=== PATIENT | female | born 1965 | race Caucasian/White ===

== ENCOUNTER 2016-10-04 12:49 | Emergency (ER) | payer OTHER ==
[~2016-10-04] VITALS: Ht 175.3 cm; Wt 106.6 kg
--- NOTE | 2016-10-04 13:59 | ED MVC/FALL/TRAUMA COMPLAINT ---
History of Present Illness General Chief Complaint: Fall Stated Complaint: L HAND INJURY/ R SIDED RIB PAIN S/P FALL Source: patient, family Exam Limitations: no limitations Vital Signs & Intake/Output Vital Signs & Intake/Output Vital Signs Date Time Temp Pulse Resp B/P Pulse O2 O2 Flow FiO2 Ox Delivery Rate 10/04 1515 78 128/88 10/04 1407 Room Air 10/04 1311 98.7 76 18 151/95 96 Room Air Allergies Coded Allergies: MDX - Lactose (Lactose) (UNKNOWN 02/17/12) Reconcile Medications Escitalopram Oxalate (Lexapro) 20 MG TABLET 1 TAB PO DAILY MENTAL HEALTH ( Reported) Losartan Potassium 50 MG TABLET 1 TAB PO DAILY KATHY (Reported) Triage Note: PT TO ED FOR FALL IN THE SHOWER P/T ARRIVAL, C/O L THUMB PAIN AND R RIB PAIN. DID NOT HIT HEAD, NO LOC. SMALL AREA OF SWELLING TO L BASE OF THUMB. Triage Nurses Notes Reviewed? yes HPI: Patient is a 51-year-old female presents complaining of left hand pain and right rib pain status post fall. Patient slipped and fell in the shower a couple of hours ago. Patient struck her right ribs against the edge of the bathtub. Pain is currently moderate, worsens with deep breath and palpation. She was administered ibuprofen in triage with mild to moderate improvement. Ice pack to the left hand also provide some relief. Patient is left-hand dominant. Patient denies head injury, loss of consciousness, neck pain, back pain, dyspnea. (CHANI VIVAS) Past History Travel History Traveled to [place] past 21 day No Medical History Any Pertinent Medical History? 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 No (CHANI VIVAS) Review of Systems Review of Systems Constitutional: Reports: no symptoms. Eyes: Denies: blurred vision. Ears, Nose, Throat, Mouth: Reports: no symptoms. Respiratory: Denies: cough, short of breath. Cardiovascular: Denies: chest pain. Gastrointestinal/Abdominal: Denies: abdominal pain. Genitourinary: Reports: no symptoms. Musculoskeletal: Reports: see HPI. Skin: Reports: no symptoms. Neurological/Psychological: Denies: headache, numbness, unable to move lower ext, unable to move upper ext. (CHANI VIVAS) Physical Exam Physical Exam General Appearance: well developed/nourished, alert, awake Head: atraumatic, normal appearance Eyes: Bilateral: normal appearance. Ears, Nose, Throat, Mouth: hearing grossly normal, moist mucous membrane Neck: normal inspection, supple, full range of motion, no midline tenderness, no paraspinal tenderness Respiratory: normal breath sounds, no respiratory distress, lungs clear, right lateral inferior rib tenderness Cardiovascular: regular rate/rhythm Peripheral Pulses: 2+ radial (L) Back: normal inspection, normal range of motion, no vertebral tenderness Extremities: tenderness left hand first metacarpal. Full range of motion of all fingers. No tenderness in the left anatomical snuffbox. No tenderness of the right upper extremity, right lower extremity, left lower extremity Neurologic/Psych: no motor/sensory deficits, awake, alert, oriented x 3, normal gait, normal mood/affect Skin: intact, normal color, warm/dry Core Measures ACS in differential dx? No Severe Sepsis Present: No Septic Shock Present: No (CHANI VIVAS) Progress Differential Diagnosis: aoritic dissection, abd injury, C/T/L spine injury, ext injury, ICH, pelvis injury, pnemothorax, spinal cord injury Plan of Care: Orders Procedure Date/time Status XRY-WRIST COMPLETE-RIGHT 10/04 1313 Active XRY-RIBS UNILATERAL-RIGHT 10/04 1313 Active Results of imaging discussed with patient and her . No acute neurologic abnormalities, patient resting comfortably. Appears stable for discharge with conservative treatment. (CHANI VIVAS) Diagnostic Imaging: Viewed by Me: Radiology Read. Discussed w/RAD: Radiology Read. Radiology Impression: PATIENT: CHLOE VILLEDA PRESENT AGE: 51 PATIENT ACCOUNT NO: [id number] : 66 LOCATION: [facility] ORDERING PHYSICIAN: KEARA REID DO SERVICE DATE: 10/04/16-1313 EXAM TYPE: RAD - XRY-RIBS UNILATERAL-RIGHT EXAMINATION: XR RIBS, RIGHT CLINICAL INFORMATION: Fall in shower COMPARISON: None TECHNIQUE: 4 plain film oblique views of the right ribs FINDINGS: Lungs are clear. No consolidation, pneumothorax, or pleural effusion. The cardiomediastinal silhouette and pulmonary vasculature are normal. Osseous structures are unremarkable. Ribs are intact. No displaced rib fractures are identified. IMPRESSION: No displaced rib fracture seen. Unremarkable right chest. DICTATED BY: CHANI WREN MD DATE/TIME DICTATED:10/04/161443 DIRECTOR OF RECRUITMENT:LEIGHTON DATE/TIME TRANSCRIBED:10/04/161443 CONFIDENTIAL, DO NOT COPY WITHOUT APPROPRIATE AUTHORIZATION. <Electronically signed in Other Vendor System> SIGNED BY: CHANI WREN MD 10/04/161447, PATIENT: CHLOE VILLEDA PRESENT AGE: 51 PATIENT ACCOUNT NO: [id number] : 66 LOCATION: [facility] ORDERING PHYSICIAN: CHANI BASHIR SERVICE DATE: 10/04/16 EXAM TYPE: RAD - XRY-WRIST COMPLETE-LEFT EXAMINATION: XR WRIST, LEFT CLINICAL INFORMATION: Fall and pain COMPARISON: None TECHNIQUE: Four views of the left wrist. FINDINGS: Bones are in normal anatomic alignment. I do not appreciate any acute fracture or dislocation seen. No significant bony degenerative or destructive changes. Carpal bone alignment is intact with no evidence for ligamentous instability. No radiopaque foreign body. IMPRESSION: No acute bony abnormality seen. DICTATED BY: CHANI WREN MD DATE/TIME DICTATED:10/04/161444 DIRECTOR OF RECRUITMENT:LEIGHTON DATE/TIME TRANSCRIBED:10/04/161444 CONFIDENTIAL, DO NOT COPY WITHOUT APPROPRIATE AUTHORIZATION. <Electronically signed in Other Vendor System> SIGNED BY: CHANI WREN MD 10/04/16 1450 (CHANI VIVAS) Departure Departure Time of Disposition: 1502 Disposition: HOME OR SELF CARE Condition: Stable Clinical Impression Primary Impression: Left thumb sprain Qualifiers: Encounter type: initial encounter Sprain of finger site: unspecified site Qualified Code: S63.602A - Unspecified sprain of left thumb, initial encounter Secondary Impressions: Contusion of rib on right side Qualifiers: Encounter type: initial encounter Qualified Code: S20.211A - Contusion of right front wall of thorax, initial encounter Referrals: JERZY CHATMAN,DONTA Hernandez (PCP/Family) Additional Instructions: Rest, ice for 20 minutes 4-5 times a day. Follow up with your doctor if no improvement within 1 week. Return to the ER if difficulty breathing, fevers, numbness, weakness or worsening of symptoms. Departure Forms: Customer Survey General Discharge Information (BHAVIK BASHIR,CHANI) PA/COMMERCIAL PLUMBER Co-Sign Statement Statement: ED Attending supervision documentation- [] I saw and evaluated the patient. I have also reviewed all the pertinent lab results and diagnostic results. I agree with the findings and the plan of care as documented in the PA's/COMMERCIAL PLUMBER's documentation. [X] I have reviewed the ED Record and agree with the PA's/COMMERCIAL PLUMBER's documentation. [] Additions or exceptions (if any) to the PAs/COMMERCIAL PLUMBER's note and plan are summarized below: [] (ROLF CHATMAN,ABDIRAHMAN Talamantes)
[2016-10-04] MEDS ORDERED: LEXAPRO20 M1 PO (14:09)
[2016-10-04] MEDS ORDERED: LOSARTAN POTASS50 M1 PO (14:10)
--- NOTE | 2016-10-04 14:48 | RADIOLOGY REPORT ---
EXAMINATION: XR RIBS, RIGHT CLINICAL INFORMATION: Fall in shower COMPARISON: None TECHNIQUE: 4 plain film oblique views of the right ribs FINDINGS: Lungs are clear. No consolidation, pneumothorax, or pleural effusion. The cardiomediastinal silhouette and pulmonary vasculature are normal. Osseous structures are unremarkable. Ribs are intact. No displaced rib fractures are identified. IMPRESSION: No displaced rib fracture seen. Unremarkable right chest.
--- NOTE | 2016-10-04 14:50 | RADIOLOGY REPORT ---
EXAMINATION: XR WRIST, LEFT CLINICAL INFORMATION: Fall and pain COMPARISON: None TECHNIQUE: Four views of the left wrist. FINDINGS: Bones are in normal anatomic alignment. I do not appreciate any acute fracture or dislocation seen. No significant bony degenerative or destructive changes. Carpal bone alignment is intact with no evidence for ligamentous instability. No radiopaque foreign body. IMPRESSION: No acute bony abnormality seen.
[2016-10-04 15:15] VITALS: BP 128/88
== END 2016-10-04 15:15 ==
LOC: ERH 12:49
DX: S63.602A Unspecified sprain of left thumb, initial encounter (principal); S20.211A Contusion of right front wall of thorax, initial encounter; W18.2XXA Fall in (into) shower or empty bathtub, initial encounter; Y93.E1 Activity, personal bathing and showering; Y92.9 Unspecified place or not applicable
CPT/HCPCS: 71100-RT; 73110-LT